=== PATIENT | male | born 1985 | race Two or more races ===

== ENCOUNTER 2024-09-09 09:00 | Day surgery (SDC) | payer BC, SELFPAY ==
[2024-09-08 13:37] VITALS: BMI 32.5
[2024-09-09] VITALS (9 sets, daily range): BP systolic 105–156; BP diastolic 58–102; PULSE 60–87; RESP 14–19; TEMP 36.3–36.6; O2SAT 95–100; BMI 34.4
[2024-09-09] MEDS: SODIUM CHLORIDE 0.9% 500 ML 500 ML 20 ML IV (11:00)
[2024-09-09] MEDS: DiphenhydrAMINE INJ 50 MG/ML VIAL 25 MG IV (11:08)
[2024-09-09] MEDS: BENZOCAINE 20% (Hurricaine) SPRAY 1 DOSE TOP (11:08)
[2024-09-09] MEDS: fentaNYL CIT INJ 50 mCg/ML AMP 2ML (ASD USE ONLY) IV (11:10)
[2024-09-09] MEDS: MEPERIDINE INJ 25 MG/ML VIAL (ASD USE ONLY) IV (11:15)
[2024-09-09] MEDS: MIDAZOLAM INJ 1 MG/ML VIAL 2 ML (ASD USE ONLY) 2 MG IV (11:15)
--- NOTE | 2024-09-09 11:41 | SUR.PHASEII ---
1129: Pt received for recovery. Report from Lakshmi HUMPHRIES. Pt groggy. Easily aroused with eye opening then drifts back to sleep. Resp even, unlabored. VS stable. No c/o pain, discomfort.
--- NOTE | 2024-09-09 12:55 | SUR.PHASEII ---
1155: Pt more awake, alert. VS stable. Denies pain. Sitting up tolerating po fluids with no difficulty swallowing and no n/v. 1210: Pt fully, awake, oriented x3. Pt assisted to restroom. Ambulation steady. Pt and girlfriend stated understanding of discharge instructions. 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 Pt discharged from [facility] in stable condition.
== END 2024-09-09 12:10 | disposition home or self-care (01) ==
PROVIDERS: PCP Family Medicine; Referring Provider Specialist; Visit Provider Specialist
PROC: (CPT 43239; principal; 2024-09-09 10:00)
DX: K20.90 Esophagitis, unspecified without bleeding (principal); K22.10 Ulcer of esophagus without bleeding; K29.70 Gastritis, unspecified, without bleeding
CPT/HCPCS: 43239; A4649; C1769; J1200; J2175; J2250; J3010; J7040; A9270

== ENCOUNTER → 2025-03-29 | Outpatient (CLI) | payer BC, SELFPAY ==
--- NOTE | 2025-03-29 09:08 | XR_ITS ---
EXAMINATION: PA lateral chest 2 views TECHNIQUE: Upright PA lateral chest 2 views Date and time: March 29, 2025, 0944 hours INDICATIONS: Shortness of breath 1 month FINDINGS: Normal heart size. Lungs are clear. The osseous structures are demineralized IMPRESSION: No active disease
== END | disposition home or self-care (01) ==
PROVIDERS: PCP Family Medicine; Referring Provider Student in an Organized Health Care Education/Training Program; Visit Provider Student in an Organized Health Care Education/Training Program
DX: R06.02 Shortness of breath (principal)
CPT/HCPCS: 71046